=== PATIENT | female | born 1960 | race Two or more races ===

== ENCOUNTER 2024-09-26 01:30 | Emergency (ER) | payer OTHER ==
[~2024-09-26] VITALS: Ht 165.1 cm; Wt 7.7 kg
[2024-09-26] MEDS ORDERED: METOCLOPRAMIDE HCL 5 MG/ML VIAL IM STA (02:44)
[2024-09-26] MEDS ORDERED: HYOSCYAMINE SULFATE 0.125 MG TAB.SUBL SL ONE (02:45)
== END 2024-09-26 03:13 | disposition home or self-care (01) ==
LOC: ER 01:30
DX: K30 Functional dyspepsia (principal); R11.10 Vomiting, unspecified